=== PATIENT | male | born 1970 | race Caucasian/White ===

== ENCOUNTER 2019-04-27 15:02 | Emergency (ER) | payer SELFPAY ==
[~2019-04-27] VITALS: Ht 196.8 cm; Wt 106.6 kg
[2019-04-27 15:11] VITALS: Ht 196.8 cm; Wt 106.6 kg
[2019-04-27 21:12] VITALS: BP 146/94
== END 2019-04-27 21:25 | disposition home or self-care (01) ==
LOC: ED 15:02
DX: S52.572A Other intraarticular fracture of lower end of left radius, initial encounter for closed fracture (principal); W19.XXXA Unspecified fall, initial encounter; Y93.89 Activity, other specified; Y92.89 Other specified places as the place of occurrence of the external cause; Y99.8 Other external cause status
CPT/HCPCS: J2001; Q0092